=== PATIENT | male | born 1990 | race Two or more races ===

== ENCOUNTER 2024-09-03 05:29 | Emergency (ER) | payer OTHER, SELFPAY ==
[2024-09-03] VITALS (8 sets, daily range): BP systolic 142–168; BP diastolic 74–96; PULSE 61–90; RESP 16–18; TEMP 36.6–37.2; O2SAT 96–99; BMI 28.9
--- NOTE | 2024-09-03 05:41 | RAD_ITS ---
PROCEDURE: HAND MIN 3 VIEWS 09/03/2024 REASON FOR EXAM: INJURY TECHNIQUE: 3 view(s) of the left hand COMPARISON: None FINDINGS: See below. RAD/Hand Min 3 Views IMPRESSION: There is bony amputation involving the distal phalanx of the 2nd finger and tip of the distal phalanx of the 4th finger. There is soft tissue amputation with exposed bone involving the distal 2nd through 4t h fingers. No radiopaque foreign body in the soft tissues. Reading Location: [facility]
[2024-09-03] MEDS: Ondansetron 4 MG/2 ML Vial IV (05:49)
[2024-09-03] MEDS: HYDROmorphone 1 MG/ML Syringe IV ×3 (05:49→09:59)
[2024-09-03] MEDS: Diphth,Pertuss(Acell),Tet Vac 0.5 ML Vial IM (05:51)
[2024-09-03 06:03] LABS: Absolute Lymphocyte Count 2.69 X10^3/uL (0.83-4.51); Absolute Neutrophil Count 2.4 X10^3/uL (2.0-7.7); Basophil# 0.04 X10^3/uL; Basophil% 0.7 % (0-1); Eosinophil# 0.11 X10^3/uL; Eosinophils% 1.9 % (0-5); Hemoglobin 15.6 g/dL (13.0-16.5); Lymphocyte # 2.69 X10^3/ul (0.83-4.51); Lymphocyte % 47.6 % (19-41); Mean Corp Hgb Conc 34.7 g/dL (32-36); Mean Corpuscular Hgb 31.6 pg (27.0-32.0); Mean Corpuscular Volume 91.1 fL (80-94); Mean Platelet Vol. 11.7 fl (6.2-12.0); Monocyte% 7.1 % (0-10); NRBC Flagged by Analyzer 0 % (0-5); Neutrophil % 42.5 % (47-70); Platelet Count 149 K/mm3 (150-450); RBC Distribution Width CV 12.3 % (11.6-14.6); RBC Distribution Width SD 40.6 fl (35.1-43.9); Red Blood Count 4.94 M/mm3 (4.6-6.2); White Blood Count 5.7 K/mm3 (4.4-11.0)
--- NOTE | 2024-09-03 06:03 | EX.ED.DYSGE1 ---
HPI History of Present Illness Chief Complaint: Trauma Informant: patient and EMS Narrative Narrative: Patient is a 33-year-old male with no past medical history. He is right-hand dominant. He works at [employer] which is a [employer]. Roughly 20 to 30 minutes prior to arrival he got his left hand stuck in a spooling mechanism and this led to injury of his left hand/finger. Patient reports significant pain in the left hand without numbness or tingling. He denies any other injury. However with concern that he may need surgery to fix the finger injuries he was brought in for evaluation [facility] Medical History no medical history no medical history Home Medications ?Medication ?Instructions ?Recorded ?Last Taken ?Type NK 09/03/24 Unknown History Allergy/AdvReac Type Severity Reaction Status Date / Time No Known Allergies Allergy Verified 09/03/24 05:30 Family History no significant family his Surgical History no surgical history Social History Smoking Status: Unknown if ever smoked ROS ROS ED Constitutional Constitutional ED: Denies chills or fever(s) Eyes Eyes: Denies change in vision ENT ENT ED: Denies sore throat Cardiovascular Cardiovascular: Reports other Details: Negative syncope ; Denies chest pain Respiratory/Chest Respiratory/Chest: Denies cough or dyspnea Gastrointestinal Gastrointestinal: Denies abdominal pain, diarrhea, nausea or vomiting Genitourinary Genitourinary ED: Denies dysuria Musculoskeletal Musculoskeletal: Reports other Details: Positive left hand/finger pain Integumentary Reports other Details: Positive laceration left hand/fingers Neurologic Neurologic: Denies paresthesias Hematologic/Lymphatic Hematologic/Lymphatic: Denies easy bleeding or easy bruising EXAM Physical Exam Const Vital Signs: 09/03/24 05:30 09/03/24 05:35 09/03/24 06:30 Temperature 98.9 F Temperature Source Oral Pulse Rate 73 65 Respiratory Rate 18 18 Respiratory Effort Normal Non-Labored Respiratory Depth Normal Respiratory Pattern Normal Blood Pressure 147/91 H 148/82 H Blood Pressure Mean 109 104 Pulse Ox 97 97 97 Oxygen Delivery Method Room Air Room Air Room Air 09/03/24 07:00 Temperature Temperature Source Pulse Rate 79 Respiratory Rate 18 Respiratory Effort Respiratory Depth Respiratory Pattern Blood Pressure 168/93 H Blood Pressure Mean 118 Pulse Ox 98 Oxygen Delivery Method Room Air Positive well nourished and well developed General Appearance ED: well developed HEENT HEENT Narrative: Normocephalic atraumatic Eyes PERRL and EOMs intact bilaterally General Eye ED: Negative for scleral icterus Neck supple Resp normal respiratory effort and clear to auscultation bilaterally Cardio regular rate and regular rhythm Extremity Extremity Narrative: There is complete amputation of the distal phalanx of the left second digit. There is amputation through the distal aspect of the left third digit with partial nail involvement. There is also amputation of the tuft/distal aspect of the fourth digit. There is bone exposure at all 3 injury sites with minimal ooze of blood. No obvious retained foreign body Patient has abrasion to the dorsal aspect of his left forearm; no secondary findings to suggest infection All compartments are soft and compressible going against compartment syndrome Remainder of the exam is normal Neuro oriented x3, CN's II-XII intact bilaterally and no sensory deficits noted Sensorium / Orientation: alert Psych mental status grossly normal Skin Skin Narrative: Injury to the left hand as documented above MDM MDM MDM Narrative Medical decision making narrative: Patient arrived to the ER hypertensive but this is most likely secondary to pain and otherwise with stable vitals. He had direct trauma to his left hand/arm. Physical exam shows traumatic amputation of the 2nd, 3rd and 4th fingers with exposure of bone but no signs of arterial injury. Secondary to the open fractures his tetanus was updated and he was started on Ancef. Based on the traumatic amputation there is no option for reattachment especially as the 3rd and 4th pieces are missing in the second piece is macerated and severely injured. As the patient will need the bony prominences trimmed down and skin flaps placed I feel he would best be served by hand surgery secondary to the multiple anchors involved. The case was discussed with [facility] hand surgeon Dr. Ricardo. At this time she agrees the patient will need surgical fixation of the amputated digits. She agrees with updating his tetanus and continuing Ancef for infection prophylaxis. She states that it is acceptable to send him to the [facility] ER where she can evaluate him and discuss surgical planning. The plan of care was discussed with the patient and friend/family and they are agreeable to the transfer and therefore will be sent to their facility for continued care History & Record Review Discussion w/independent historian: Patient, Friend and Significant other Lab Data Attestation: I reviewed the patient's lab results. Labs: Laboratory Results - last 24 hr 09/03/24 05:45 WBC 5.7 RBC 4.94 Hgb 15.6 Hct 45.0 MCV 91.1 MCH 31.6 MCHC 34.7 RDW Std Deviation 40.6 RDW Coeff of Trice 12.3 Plt Count 149 L MPV 11.7 Immature Gran % (Auto) 0.200 Neut % (Auto) 42.5 L Lymph % (Auto) 47.6 H [place] % (Auto) 7.1 Eos % (Auto) 1.9 Baso % (Auto) 0.7 Absolute Neuts (auto) 2.4 Absolute Lymphs (auto) 2.69 Nucleated RBC % 0 PT 13.6 INR 1.0 APTT 21.6 L Sodium 137 Potassium 4.0 Chloride 100 Carbon Dioxide 25.4 Anion Gap 12 BUN 9 Creatinine 0.93 Estim Creat Clear Calc 111.02 Est GFR (MDRD) Non-Af 109 BUN/Creatinine Ratio 10.0 Glucose 129 H Calcium 9.0 Radiography Diagnostic Testing: Clinical Impression(s) from Imaging Studies Hand X-Ray 09/03/24 05:41 IMPRESSION: There is bony amputation involving the distal phalanx of the 2nd finger and tip of the distal phalanx of the 4th finger. There is soft tissue amputation with exposed bone involving the distal 2nd through 4th fingers. No radiopaque foreign body in the soft tissues. Reading Location: [id number] X-ray of the left hand as interpreted by the emergency medicine physician reveals amputation of the left second distal phalanx as well as the tuft of the 3rd and 4th phalanx without retained foreign body X-ray of the left forearm shows no acute fracture or dislocation retained foreign body or joint effusion Management Discussion w/another healthcare provider: [facility] [employer] Discharge Plan Triage Chief Complaint: Trauma ED Provider: Jose Hicks Dx/Rx/DC Orders Clinical Impression: Traumatic amputation of multiple fingers, Open fracture of finger of left hand Prescriptions: No Action NK Primary Care Provider: Care Physician,No Primary Referrals: Care Physician,No Primary [Primary Care Provider] - Print Language: Qatari Disposition Disposition: Acute Care Hospital Discharge Location: [facility]
[2024-09-03 06:11] LABS: Prothrombin Time (Protime)PT. 13.6 SECONDS (11.7-14.9)
[2024-09-03 06:12] LABS: Partial Thromboplast Time 21.6 Seconds (24.1-36.2)
[2024-09-03] MEDS: Cefazolin 2 GM in 0.9% Normal Saline (100mL Bag) 100 ML IV (06:16)
[2024-09-03 06:19] LABS: Anion Gap 12 (5-15); BUN 9 mg/dL (4-19); Carbon Dioxide 25.4 mmol/L (21.0-32.0); Chloride 100 mmol/L (98-108); Creatinine, Serum 0.93 mg/dL (0.70-1.20); EST Glomerular Filtration Rate 109 (>60); Estimated Creatinine Clearance 111.02 ml/min (50-250); Glucose 129 mg/dL (70-99); Sodium Level 137 mmol/L (133-145)
--- NOTE | 2024-09-03 06:29 | ED.RN ---
This RN assisted the patient with filling out the FROI d/t left hand injury and language barrier. The patient speaks Wolof and [facility] does not have a english FROI.
--- NOTE | 2024-09-03 06:58 | RAD_ITS ---
PROCEDURE: FOREARM 2 VIEWS 09/03/2024 REASON FOR EXAM: INJURY Left hand stuck in a machine. Forearm laceration. TECHNIQUE: 2 view(s) of the left forearm COMPARISON: No relevant prior FINDINGS: Bones: No fractures or other osseous abnormalities. Joints: No subluxations or dislocations. Soft tissues: Unremarkable. RAD/Forearm 2 Views IMPRESSION: No acute osseous or other abnormality. Reading Location: [place] [id number]
--- NOTE | 2024-09-03 08:22 | PCA ---
CALLED PHYSICIANS @ 0638 WITH AN ETA 60 MINS. GOING BLS. THEY WERE NOT HERE AT 0815 SO I CALLED AND THEY SAID IT WOULD BE ANOTHER 1HR AND 30 MINS. THEN THEY CALLED BACK AT 0824 AND SAID IT WOULD 30-45 MINS. NOT SURE WHY THEY WOULD PUSH BACK ON A TRAUMA TRANSFER THAT NEEDS TO BE IN SURGERY LIKE THAT. KALEN DID TALK TO JASWINDER ABOUT IT.
--- NOTE | 2024-09-03 08:24 | ED.RN ---
Called Cesar about ETA. Per Cesar 30-40min ETA
--- NOTE | 2024-09-03 10:28 | PCA ---
physicians finally pulled up the ramp at 1009 got the patient and came in at 1012. departed with the patient at 1029.
== END 2024-09-03 10:32 | disposition short-term general hospital (02) ==
PROVIDERS: Emergency Provider Emergency Medicine; Visit Provider Emergency Medicine
DX: S68.111A Complete traumatic metacarpophalangeal amputation of left index finger, initial encounter (principal); S68.113A Complete traumatic metacarpophalangeal amputation of left middle finger, initial encounter; S68.115A Complete traumatic metacarpophalangeal amputation of left ring finger, initial encounter; X58.XXXA Exposure to other specified factors, initial encounter
CPT/HCPCS: 73090; 73130; 80048; 85025; 85610; 85730; 90715; 96365; 96375; 96376; 99285; A4216; J2405